=== PATIENT | male | born 1960 | race Caucasian/White ===

== ENCOUNTER 2019-01-19 09:28 | Emergency (ER) | payer OTHER ==
[2019-01-19] MEDS ORDERED: Lidocaine 1% 30 ML SDV INJECT ONE (09:48)
--- NOTE | 2019-01-19 10:06 | EDM.PDOC ---
ED HPI GENERAL MEDICAL PROBLEM - General Chief Complaint: Laceration Stated Complaint: FISH HOOK IN FINGER [id number] Time Seen by Provider: 01/19/19 09:45 Source of Information: Reports: Patient History Limitations: Reports: No Limitations - History of Present Illness INITIAL COMMENTS - FREE TEXT/NARRATIVE: patient comes emergency department today with concerns of a fork that got caught his left hand. Today the patient was out fishing when he got trouble hook stuck in his second and third finger of the left hand. This happened just prior to arrival. A friend had clipped the piece of the hook off and he has concerns that their pieces left in his left finger. He is up to date on his tetanus. - Related Data Allergies Allergy/AdvReac Type Severity Reaction Status Date / Time acetaminophen [From Percocet] Allergy Rash Verified 01/19/19 09:46 oxycodone [From Percocet] Allergy Rash Verified 01/19/19 09:46 Social & Family History - Tobacco Use Smoking Status *Q: Never Smoker - Caffeine Use Caffeine Use: Reports: None - Recreational Drug Use Recreational Drug Use: No ED ROS GENERAL - Review of Systems Review Of Systems: ROS reveals no pertinent complaints other than HPI. ED EXAM, SKIN/RASH Exam: See Below Exam Limited By: Language Barrier General Appearance: Alert, WD/WN, No Apparent Distress Peripheral Pulses: 2+: Radial (L), Radial (R) Extremities: No: Normal Inspection (examination of the left hand on the left fourth finger lateral aspect of the DIP there is a metal trouble look that is embedded into the skin. CMS is intact throughout the entirety of the left fourth finger. There is also a puncture wound where he states that he had clipped off a bar on the lateral aspect of his third finger in the similar region as well as look as on the fourth finger. He is unsure if there is any kailey left. I cannot see any foreign material on the third finger nor can I feel any material. CMS is intact throughout the entire to the left hand. And the rest of the hand is unremarkable.) Course - Vital Signs Last Recorded V/S: Last Vital Signs Temp 36.8 C 01/19/19 09:35 Pulse 100 01/19/19 09:35 Resp 16 01/19/19 09:35 BP 131/86 01/19/19 09:35 Pulse Ox 99 01/19/19 09:35 - Orders/Labs/Meds Meds: Medications Discontinued Medications Generic Name Dose Route Start Last Admin Trade Name Job PRN Reason Stop Dose Admin Lidocaine HCl 30 ml 01/19/19 09:48 01/19/19 10:02 Xylocaine-Mpf 1% INJECT 01/19/19 09:49 30 ml ONETIME ONE Administration - Re-Assessments/Exams Free Text/Narrative Re-Assessment/Exam: 01/19/19 10:10 x-ray of the left hand shows an obvious metal foreign object in the fourth finger of the left hand consistent with for the fishhook is. I do not see any radiopaque foreign material in the third finger therefore most likely there is no focal cleft in the finger. Radiological review to follow. Lidocaine 1% without epinephrine was injected at the site of the fourth finger where the hook is embedded. With the use of umbilical tape and manual traction was able to easily and quickly remove the fishhook painlessly. The hand was soaked in chlorhexidine and sterile water. His tetanus immunization is up-to- date. Departure - Departure Time of Disposition: 10:11 Disposition: Home, Self-Care 01 Clinical Impression: Fish hook injury of finger of left hand Qualifiers: Encounter type: initial encounter Qualified Code(s): S69.92XA - Unspecified injury of left wrist, hand and finger(s), initial encounter - Discharge Information Instructions: Puncture Wound, [id number], Pain Medicine Instructions, Easy-to -Read Forms: ED Department Discharge Additional Instructions: Tylenol and or ibuprofen as needed for pain. Soak the hand is warm as possible water with amado dish soap and epsom salts 4 times a day until healed. Bacitracin and bandage until healed. Return to the ED if new or worsening symptoms. Follow up with PCP if concerns or any signs of infection. - Assessment/Plan Assessment:: Fish hook in the left 4th finger removal puncture wound to the left 3rd finger. Plan: Tylenol and or ibuprofen as needed for pain. Soak the hand is warm as possible water with amado dish soap and epsom salts 4 times a day until healed. Bacitracin and bandage until healed. Return to the ED if new or worsening symptoms. Follow up with PCP if concerns or any signs of infection.
== END 2019-01-19 10:20 | disposition home or self-care (01) ==
LOC: DL.ED 09:28
DX: S61.233A Puncture wound without foreign body of left middle finger without damage to nail, initial encounter (principal); S60.455A Superficial foreign body of left ring finger, initial encounter; Z88.6 Allergy status to analgesic agent; W45.8XXA Other foreign body or object entering through skin, initial encounter
CPT/HCPCS: 73140; 99283; J2001

== ENCOUNTER 2021-01-28 13:13 | Emergency (ER) | payer SELFPAY | END 2021-01-28 13:43 | disposition left against medical advice (07) | LOC: DL.ED 13:13 | DX: Z53.21 Procedure and treatment not carried out due to patient leaving prior to being seen by health care provider (principal) ==